=== PATIENT | female | born 1950 | race Caucasian/White ===

== ENCOUNTER 2017-02-13 14:33 | Emergency (ER) | payer MEDICARE, OTHER ==
--- NOTE | ~2017-02-13 | CT71 ---
[facility] A Service of [facility] & [facility] RADIOLOGY TEXT RESULTS PATIENT: ROSENDO ROGEL LOCATION: [facility] : 50 UNIT #: [id number] AGE: [address]: Giuseppe Moreno MD SEX: F ORDER DR: [id number] [facility] [address] [place], [place] [address] [id number] E MR#: [id number] Acc #: [id number] NAME: ROSENDO ROGEL. : 1950 SEX: F STUDY DATE/TIME: 02/13/2017 14:55 UNIT: [facility] ROOM: STUDY DESCRIPTION: CT Head Wo Contrast Attending Physician: Giuseppe Moreno M.D. Ordering Physician: Giuseppe Moreno M.D. Primary Care Physician: No Primary Care Physician MEDICAL IMAGING REPORT This report is preliminary unless electronic signature is present EXAM CT head, 02/13/2017. HISTORY Fall from wheelchair; laceration to back of head today. Neck pain. TECHNIQUE CT head performed skull base through vertex without intravenous contrast. This CT exam was performed with one or more of the following radiation dose reduction techniques: automatic exposure control, adjustment of mA and/or kV according to patient size, and iterative reconstruction. COMPARISON 03/30/2012 FINDINGS Brain stem unremarkable. Cerebellum and cerebral hemispheres show overall preservation of hanson matter-white matter differentiation. No intracranial hemorrhage. There is no evidence of acute cortical ischemia. Prominent area of encephalomalacic change in the left frontal and frontoparietal junction regions, consistent with remote vascular insult. More pronounced than in 2011, but clearly chronic in appearance. There are periventricular and deep white matter tract hypodensities bilaterally, likely reflecting sequelae of chronic microvascular ischemia. The midline structures are nondisplaced. No acute-appearing basal ganglia abnormality. The above described chronic encephalomalacic change does involve a portion of the left putamen, consistent with middle cerebral artery distribution chronic ischemic change. The ventricles, cisterns, and sulci show mild generalized enlargement with sigmoid diverticula ex vacuo change in the left cerebral hemisphere due to the encephalomalacia. No intra- or extraaxial mass effect. There is no acute-appearing bony abnormality. Configuration of the bilateral nasal bones suggests old bilateral nasal bone fractures. No STS. [facility] A Service of [facility] & [facility] RADIOLOGY TEXT RESULTS PATIENT: ROSENDO ROGEL LOCATION: [facility] : 50 UNIT #: [id number] AGE: [address]: Giuseppe Moreno MD SEX: F ORDER DR: change in appearance from prior study. There is soft tissue swelling, posterior left paracentral parietal scalp, likely reflecting the patient's acute trauma. No subcutaneous air or radiodense foreign body. Mucous retention cyst in the right maxillary sinus. Some mucosal thickening in the ethmoid air cells. IMPRESSION 1. No acute-appearing abnormality is seen in the brain. If the patient has ongoing neurologic symptoms, consider follow-up imaging. 2. Chronic changes include the following: Encephalomalacic change in portions of the left frontal lobe, frontoparietal junction region, and basal ganglia, felt secondary to remote vascular insult in left middle cerebral artery distribution. Mild to moderate generalized atrophy. Periventricular and deep white matter tract probable sequelae of chronic small vessel ischemia. 3. No fracture. 4. Soft tissue swelling, left paracentral posterior parietal scalp. Likely reflecting the patient's stated trauma. No subcutaneous air or radiodense foreign body. 5. Old bilateral nasal bone fractures. 6. Mucosal thickening, ethmoid air cells. Mucous retention cyst, right maxillary sinus. Dictated by... Kenneth Glez M.D. THIS IS AN ELECTRONICALLY VERIFIED REPORT Kenneth Glez M.D. at 02/14/2017 1:54 PM СЕРГЕЙ/mckenzie TD: 02/13/2017 18:34 JOB #: [id number] MEDICAL IMAGING REPORT Page 1 of 1 COPY
--- NOTE | ~2017-02-13 | CT52 ---
[facility] A Service of [facility] RADIOLOGY TEXT RESULTS PATIENT: ROSENDO ROGEL LOCATION: [facility] : 50 UNIT #: [id number] AGE: [address]: Giuseppe Moreno MD SEX: F ORDER DR: [id number] [facility] [address] [place], [place] [address] [id number] E MR#: [id number] Acc #: [id number] NAME: ROSENDO ROGEL : 1950 SEX: F STUDY DATE/TIME: 02/13/2017 14:55 UNIT: [facility] ROOM: STUDY DESCRIPTION: CT Cervical Spine Wo Cont Attending Physician: Giuseppe Moreno M.D. Ordering Physician: Giuseppe Moreno M.D. Primary Care Physician: No Primary Care Physician MEDICAL IMAGING REPORT This report is preliminary unless electronic signature is present EXAM Cervical spine CT. HISTORY Laceration to the back of the head after falling from a wheelchair today. Patient complains of neck pain. TECHNIQUE Axial imaging was obtained from the skull base to the upper thoracic spine and evaluated at bone and soft tissue windows with multiplanar reformats. This CT exam was performed with one or more of the following radiation dose reduction techniques: automatic exposure control, adjustment of mA and/or kV according to patient size, and iterative reconstruction. FINDINGS Alignment is satisfactory. There are mild degenerative changes at all cervical discs and facets. There is no evidence of fracture or interlocked facet. No destructive bone lesions are seen. No prevertebral soft tissue swelling is noted. IMPRESSION Mild degenerative disc and facet disease throughout the cervical spine. No fracture is seen. Dictated by... Luis Enrique De M.D. THIS IS AN ELECTRONICALLY VERIFIED REPORT Luis Enrique De M.D. at 02/17/2017 10:12 AM RLF/tmw [facility] A Service of [facility] & [facility] RADIOLOGY TEXT RESULTS PATIENT: ROSENDO ROGEL LOCATION: [facility] : 50 UNIT #: [id number] AGE: [address]: Giuseppe Moreno MD SEX: F ORDER DR: TD: 02/13/2017 17:02 JOB #: [id number] MEDICAL IMAGING REPORT Page 1 of 1 COPY
--- NOTE | ~2017-02-13 | CR170 ---
[facility] A Service of [facility] & [facility] RADIOLOGY TEXT RESULTS PATIENT: ROSENDO ROGEL LOCATION: [facility] : 50 UNIT #: [id number] AGE: [address]: Giuseppe Moreno MD SEX: F ORDER DR: [id number] [facility] [address] [place], [place] [address] [id number] E MR#: [id number] Acc #: [id number] NAME: ROSENDO ROGEL : 1950 SEX: F STUDY DATE/TIME: 02/13/2017 14:20 UNIT: [facility] ROOM: STUDY DESCRIPTION: CR Knee 2 Views Rt Attending Physician: Giuseppe Moreno M.D. Ordering Physician: Giuseppe Moreno M.D. Primary Care Physician: No Primary Care Physician MEDICAL IMAGING REPORT This report is preliminary unless electronic signature is present EXAM 4 views right knee. INDICATION Frontal knee pain after a fall today trying to get in her wheelchair. FINDINGS No definite acute fracture or subluxation of the right knee is identified. Please note exam is significantly degraded by patient positioning as the patient is unable to straighten her knee which limits the AP view. She does appear to be osteopenic. No aggressive osseous abnormalities are seen and there is no suprapatellar effusion. IMPRESSION No obvious fracture identified. Exam is degraded by patient positioning. Dictated by... Rachel Barajas M.D. THIS IS AN ELECTRONICALLY VERIFIED REPORT Rachel Barajas M.D. at 02/13/2017 4:53 PM AFF/tmw TD: 02/13/2017 16:10 JOB #: [id number] MEDICAL IMAGING REPORT Page 1 of 1 COPY
[2017-02-13 14:29] LABS: BASOPHIL% 0.4 % (0-2.5); EOSINOPHIL# 0.2 X10e3 (0-0.7); EOSINOPHIL% 1.9 % (0.0-7.0); HEMATOCRIT 35.7 % (35.0-45.0); HEMOGLOBIN 11.4 gm/dL (12.0-16.0); LYMPHOCYTE# 3.3 X10e3 (1.0-3.5); LYMPHOCYTE% 32.8 % (17.0-45.0); MEAN CORPUSCULAR HEMOGLOBIN 26.4 PG (28-34); MEAN CORPUSCULAR HGB CONC 31.8 g/dL (30-36); MEAN PLATELET VOLUME 8.2 FL (6.5-11.5); MONOCYTE# 0.8 X10e3 (0-1.0); MONOCYTE% 8.1 % (3.0-12.0); NEUTROPHIL# 5.7 X10e3 (1.5-7.1); NEUTROPHIL% 56.8 % (40-75); PLATELET COUNT 419 X10e3 (140-420); RED CELL DISTRIBUTION WIDTH 17.4 % (11.0-15.5); WHITE BLOOD COUNT 9.9 X10e3 (4.0-10.5)
[2017-02-13 14:37] LABS: DIFF IND NO
[2017-02-13 14:45] LABS: INR 1.3
[2017-02-13 14:55] LABS: BUN/CREATININE RATIO 14.28; CALCIUM SERUM 8.8 mg/dL (8.4-10.2); CREATININE SERUM 0.7 mg/dL (0.6-1.4); GLOM FILT RATE Estimated 90.3 mL/min (>60); POTASSIUM 4.2 mmol/L (3.5-5.1)
[2017-07-28] MEDS ORDERED: PROBIOTIC250 MG PO (09:21)
[2017-07-28] MEDS ORDERED: LEVOXYL0.137 MG PO (09:22)
[2017-07-28] MEDS ORDERED: GLUCOPHAGE500 MG PO (09:22)
[2017-07-28] MEDS ORDERED: NEURONTIN600 MG PO (09:24)
[2017-07-28] MEDS ORDERED: CLOPIDOGREL75 MG PO (09:25)
== END 2017-02-13 17:43 | disposition home or self-care (01) ==
LOC: CED 14:33
PROVIDERS: Emergency Medicine
DX: S01.01XA Laceration without foreign body of scalp, initial encounter (principal); I50.9 Heart failure, unspecified; F03.90 Unspecified dementia, unspecified severity, without behavioral disturbance, psychotic disturbance, mood disturbance, and anxiety; N18.9 Chronic kidney disease, unspecified; W05.0XXA Fall from non-moving wheelchair, initial encounter; Y92.129 Unspecified place in nursing home as the place of occurrence of the external cause
CPT/HCPCS: 12001; 36415; 70450; 72125; 73560; 80048; 85025; 85610; 86850; 86900; 86901; 99285; J1885

== ENCOUNTER 2017-07-09 19:31 | Inpatient (IN) | payer MEDICARE, OTHER ==
[~2017-07-09] VITALS: Ht 157.5 cm; Wt 47.3 kg
--- NOTE | ~2017-07-09 | CT4 ---
[facility] A Service of [facility] & [facility] RADIOLOGY TEXT RESULTS PATIENT: ROSENDO ROGEL [address]ATION: [address] : 50 UNIT #: [id number] AGE: [address]: Paxton Gómez MD SEX: F ORDER DR: [id number] [facility] [address] [place], [place] [address] [id number] I MR#: [id number] Acc #: [id number] NAME: ROSENDO ROGEL : 1950 SEX: F STUDY DATE/TIME: 07/11/2017 3:42 UNIT: [id number] ROOM: [facility] STUDY DESCRIPTION: CT Abd and Pelv Wo Cont Attending Physician: Paxton Gómez M.D. Ordering Physician: Paxton Gómez M.D. Primary Care Physician: Paxton Gómez M.D. MEDICAL IMAGING REPORT This report is preliminary unless electronic signature is present EXAM CT abdomen and pelvis without contrast HISTORY Fever and vomiting and abdomen pain today. FINDINGS CT abdomen and pelvis was performed without contrast. This CT exam was performed with one or more of the following radiation dose reduction techniques: automatic control, adjustment of mA and/or kV according to patient size, and iterative reconstruction. CT ABDOMEN: There is moderate atelectasis and mild associated bronchiectasis in the posterior lung bases bilaterally. Cholecystectomy. The liver, spleen, right kidney, and adrenal glands are unremarkable. Pancreatic parenchymal atrophy. 1.5 cm nonobstructing stone in the left renal pelvis. No ureteral dilatation. No bowel dilatation. Normal caliber abdominal aorta. No ascites. CT PELVIS: Probable small stone or collection of stones in the right posterior margin of the urinary bladder. Lazar catheter in the bladder and small amount of air in the bladder, likely secondary to catheterization. Hysterectomy. No free fluid. No inflammatory stranding in the pelvis. Right common femoral vein catheter terminates in the right common iliac vein. IMPRESSION 1. No acute findings in the abdomen or pelvis. 2. 1.5 cm nonobstructing stone in the left renal pelvis. Probable small stones in the right posterior margin of the urinary bladder. 3. No bowel obstruction. No free fluid or inflammatory changes in the abdomen or pelvis. 4. Moderate atelectasis and mild bronchiectasis in the posterior lung [facility]. [facility] A Service of [facility] & [facility] RADIOLOGY TEXT RESULTS PATIENT: ROSENDO ROGEL [address]ATION: [address] : 50 UNIT #: [id number] AGE: [address]: Paxton Gómez MD SEX: F ORDER DR: bases bilaterally. Dictated by... Dariusz Lugo M.D. THIS IS AN ELECTRONICALLY VERIFIED REPORT Dariusz Lugo M.D. at 07/12/2017 6:32 AM DFL/gerardor TD: 07/12/2017 05:39 JOB #: [id number] MEDICAL IMAGING REPORT Page 1 of 1 COPY
--- NOTE | ~2017-07-09 | EKG ---
PATIENT: ROSENDO ROGEL UNIT #: [id number] Ventricular Rate: 118 BPM Atrial Rate: 118 BPM P-R Interval: 162 ms QRS Duration: 88 ms Q-T Interval: 332 ms QTC Calculation(Bezet): 465 ms P [place]: 36 degrees Calculated R [place]: 63 degrees Calculated T [place]: 31 degrees Diagnosis Line: Sinus tachycardia Diagnosis Line: ST and T wave abnormality, consider inferior Diagnosis Line: ischemia Diagnosis Line: ST and T wave abnormality, consider anterolateral Diagnosis Line: ischemia Diagnosis Line: Abnormal ECG Diagnosis Line: No previous ECGs available Diagnosis Line: Confirmed by ALIE MARAVILLA MD ([id number]) on 07/10/2017 Diagnosis Line: 5:11:11 PM INTERPRETING MD: TAIWO SCOTT
--- NOTE | ~2017-07-09 | CR72 ---
[facility] A Service of [facility] & [facility] RADIOLOGY TEXT RESULTS PATIENT: ROSENDO ROGEL LOCATION: [place] [address] : 50 UNIT #: [id number] AGE: [address]: Paxton Gómez MD SEX: F ORDER DR: [id number] [facility] [address] [place], [place] [address] [id number] I MR#: [id number] Acc #: [id number] NAME: ROSENDO ROGEL. : 1950 SEX: F STUDY DATE/TIME: 07/11/2017 5:58 UNIT: [facility] ROOM: [facility] STUDY DESCRIPTION: CR Chest Single View Portable Attending Physician: Paxton Gómez M.D. Ordering Physician: Dewayne Maldonado M.D. Primary Care Physician: Paxton Gómez M.D. MEDICAL IMAGING REPORT This report is preliminary unless electronic signature is present EXAM Portable chest INDICATIONS Fever. Decreased loss of consciousness, suspected aspiration symptoms for 2 days. COMPARISON 07/09/2017. FINDINGS Today's portable view of the chest shows no change from yesterday's study with minimal subsegmental atelectasis in the right mid lung and left base. The heart size is normal. Dictated by... Cong Camara M.D. THIS IS AN ELECTRONICALLY VERIFIED REPORT Cong Camara M.D. at 07/12/2017 9:07 AM MESSI/reba TD: 07/12/2017 08:53 JOB #: [id number] MEDICAL IMAGING REPORT Page 1 of 1 COPY
--- NOTE | ~2017-07-09 | A ---
[facility] Nutrition Therapy DATE: 07/14/17 Patient: ROSENDO Arango JUAN F Physician: VINCE Address: [facility] Room/Bed: [address], Zip: [place] [address] Admit Date: 07/09/17 Date of : [birth year] Height: 5 2 Weight: 105 48 NUTRITIONAL ASSESSMENT: REASON: ICU LOS Admitting dx: 67 y/o female admitted with urosepsis and fever PMH: A-fib, stroke, PE, T2DM, CAD, HTN, HLD, CHF, COPD, vascular dementia, chronic pain, depression, anxiety Anthropometrics: Ht: 62", admission wt: 106 lbs, current wt: 105 lbs, BMI: 19 (normal) Weight range: 102-110 lbs since admission, 150 lbs on 02/13/17?? Labs: glucose 83, POC 80-124 Meds: Therapeutic formula, low SSI, levophed, zofran prn, NSIVF @ 75 ml/hr I/O & Bowel function: BM 07/14 Skin Integrity: No issues, no edema Assessment: Chart reviewed, events noted. See admitting dx and PMH as stated above. RD assessing due to 5-day ICU length of stay. The patient is on 2L nasal cannula, scored 0 points on the malnutrition risk screening. No family at bedside to provide diet/weight history, patient is sleeping at time of visit to room. She is on a regular diet, glucose well controlled at this time. Per nursing she has poor PO intake 25-50% of meals and requires feeding assistance. Nursing trying to encourage increase in PO intake. RD will order Ensure BID and follow hospital course. Of note, the patient's urosepsis is resolved and she is afebrile. She is on a low dose of Levophed due to hypotension, which is the only reason she is still in ICU. See recs below. Dx: Inadequate oral intake r/t decreased appetite, clinical condition AEB PO intake 25-50% of meals, need for ONS. Intervention: Ensure Enlive BID, feeding assistance Monitoring, Evaluation and Goals: 1. PO intake > 50% of meals/supps. 2. Maintain current weight status. Monitor: per protocol, criteria to determine if above goals met Recommendations: [facility] Nutrition Therapy DATE: 07/14/17 Patient: ROSENDO ROGEL Physician: VINCE Address: [facility] Room/Bed: [address], Zip: [place] [address] Admit Date: 07/09/17 Date of : [birth year] Height: 5 2 Weight: 105 48 1. Agree with regular diet. RD ordering Ensure Enlive BID to increase oral kcal/protein intake. 2. Appreciate staff to continue to help feed the patient and encourage PO intake. Will follow Mild-moderate nutrition risk Respectfully, Hope Rincon RD, LD [facility] cc: client file
--- NOTE | ~2017-07-09 | CR72 ---
[facility] A Service of [facility] & [facility] RADIOLOGY TEXT RESULTS PATIENT: ROSENDO ROGEL LOCATION: [address] : 50 UNIT #: [id number] AGE: [address]: Pxaton Gómez MD SEX: F ORDER DR: [id number] [facility] [address] [place], [place] [address] [id number] I MR#: [id number] Acc #: [id number] NAME: ROSENDO ROGEL. : 1950 SEX: F STUDY DATE/TIME: 07/09/2017 19:49 UNIT: [facility] ROOM: [facility] STUDY DESCRIPTION: CR Chest Single View Portable Attending Physician: Paxton Gómez M.D. Ordering Physician: Sachin Peck M.D. Primary Care Physician: Paxton Gómez M.D. MEDICAL IMAGING REPORT This report is preliminary unless electronic signature is present EXAM Portable chest 07/09/2017 HISTORY Fever and aspiration with decreased level of consciousness today. FINDINGS The cardiac and mediastinal structures are stable compared with 04/20/2012. There is elevation of the right hemidiaphragm with atelectasis and/or fibrosis at the right lung base. Infiltrate and/or atelectasis left base. The upper lungs are clear. There are no pleural effusions. IMPRESSION Poor inspiratory result and elevation of the right hemidiaphragm with atelectasis or fibrosis at the right base and infiltrate or atelectasis left base. Dictated by... Shane Strauss M.D. THIS IS AN ELECTRONICALLY VERIFIED REPORT Shane Strauss M.D. at 07/10/2017 4:03 PM SIOBHAN/jannet TD: 07/10/2017 12:11 JOB #: [id number] MEDICAL IMAGING REPORT Page 1 of 1 COPY
--- NOTE | ~2017-07-09 | CO ---
Unit #: [id number] #: [id number] Patient: ROSENDO ROGEL [id number] [address] [place], [place] [address] [id number] I MR#: [id number] NAME: ROSENDO ROGEL. ROOM: [facility] Age: 67 Sex: F Admission Date: 07/09/2017 : 1950 Attending Physician: Paxton Gómez M.D. Primary Care Physician: Paxton Gómez M.D. Requesting Physician: Fito Duarte M.D. Consultation Date: 07/10/2017 CONSULTATION REPORT REASON FOR CONSULTATION Sepsis. HISTORY OF PRESENT ILLNESS This is a 67-year-old white female from a jail who was admitted with hypotension and fever with leukocytosis. She had some urinary difficulties and suprapubic pain. She does not have an indwelling Lazar catheter. She was found to be hypotensive and febrile and was admitted to the ICU and started on ceftriaxone when the urinalysis showed obvious urinary tract infection. Subsequently, blood culture became positive with gram-positive cocci for which vancomycin was initiated, and Infectious Disease was consulted for evaluation. Patient is currently stable. She is awake and follows commands. Her pressor requirement is coming down, and Levophed is being tapered off. Her fever is also improved. She is an extremely poor historian. She does have a right groin central line which was placed in on admission, and the Lazar catheter was new. PAST MEDICAL HISTORY 1. Vascular dementia. 2. Chronic pain syndrome. 3. Congestive heart failure. 4. Anxiety and depression. 5. Hyperlipidemia. 6. Diabetes. 7. Hypertension. 8. Coronary artery disease. 9. Previous stroke. 10. Pulmonary embolism. PAST SURGICAL HISTORY 1. Cholecystectomy. 2. Hysterectomy. 3. Carpal tunnel release. CURRENT MEDICATIONS 1. Vancomycin. 2. Rocephin. 3. IV fluids. 4. Midodrine. 5. Multivitamins. 6. Mirtazapine. 7. Pantoprazole. Unit #: [id number] #: [id number] Patient: ROSENDO ROGEL 8. Trazodone. 9. Sertraline. 10. Warfarin. 11. Norepinephrine infusion. DRUG ALLERGIES Codeine, sulfamethoxazole, trimethoprim. SOCIAL HISTORY She currently lives in a jail. No history of alcohol, drugs, or tobacco abuse. FAMILY HISTORY Negative. HOME MEDICATIONS Noted. REVIEW OF SYSTEMS Patient is unable to provide detailed information. Chart was reviewed and discussions were held with the nursing staff, and pertinent findings are listed in the History of Present Illness. Mostly, she has suprapubic discomfort, hypertension, and mild urinary difficulty. Currently, she is awake and follows commands. She denies any chest pain, abdominal pain, headache, or focal neurologic symptoms. There is no obvious skin breakdown. PHYSICAL EXAMINATION GENERAL: An elderly white female who looks older than her stated age. She is awake and somewhat lethargic but follows commands and does not appear to be in any distress. She is still on low-dose Levophed. VITAL SIGNS: Current temperature is 97.7, T-max was 103.7 on admission, heart rate is 80, respirations 14, and blood pressure 118/53. Her lowest blood pressure was 81/36 on admission. NECK: Supple. She looks pale. No JVD or edema. LUNGS: Clear. CARDIOVASCULAR: Heart sounds are normal. ABDOMEN: Soft. There is minimal suprapubic tenderness. Lazar catheter is in place. Right groin line is in place and looks fine. No rebound or guarding. Bowel sounds are normal. NEUROLOGIC: She is awake and follows commands. She is able to move all four extremities, although there is generalized muscle wasting. DIAGNOSTIC STUDIES LABORATORY: Blood cultures one out of two sets is positive for gram-positive cocci in clusters. ID is pending. Second blood culture was negative. Urine culture with gram-negative rods. Identification is pending. Urinalysis is consistent with urinary tract infection with pyuria, leukocyte esterase, nitrites, and protein. White count today is 13.6. It was 23 on admission. Hemoglobin is 10.1, platelets 223,000, and neutrophils 73%. Sodium 143, potassium 3.9, chloride 108, CO2 of 28, BUN 11, and creatinine 0.6. Lactic acid 2.3 which has improved from 3.7. IMAGING: Chest x-ray shows atelectasis or fibrosis at the right base and atelectasis at the left base. IMPRESSION Septic shock, most likely urinary tract infection. The causative organism Unit #: [id number] #: [id number] Patient: ROSENDO ROGEL appears to be gram-negative trupti. The positive blood culture with gram-positive cocci is most likely a skin contaminant. However, will need to follow the final identification. Patient is overall stable clinically. RECOMMENDATIONS I agree with ceftriaxone and vancomycin. I will give one dose of tobramycin until ID of gram-negative trupti is known. If the blood cultures appear to be coagulase-negative staph, then vancomycin can be discontinued and the rest of the antibiotics adjusted according to final ID and susceptibility of gram-negative trupti in the urine. Thank you, Dr. Duarte, for asking us to see this patient. We will follow along with you. Dictated by... Eleanor Bonilla/naz TD: 07/12/2017 14:33 JOB #: [id number] CONSULTATION REPORT Page 1 of 1 X Andrzej Garcia MD X CONSULTATION REPORT
--- NOTE | ~2017-07-09 | DS ---
Unit #: [id number] #: [id number] Patient: ROSENDO ROGEL [id number] [address] [place], [place] [address] [id number] MR#: [id number] NAME: ROSENDO ROGEL. ROOM: 321 Age: 67 Sex: F Admission Date: 07/09/2017 : 1950 Discharge Date: 07/17/2017 Attending Physician: Paxton Gómez M.D. Primary Care Physician: Paxton Gómez M.D. DISCHARGE SUMMARY DISCHARGE DIAGNOSES 1. Bacteremia. 2. Urosepsis. 3. Chronic systolic heart failure. 4. History of pulmonary embolism. 5. History of coronary artery disease. 6. Hypertension. 7. Chronic pain. 8. Diabetes. 9. Anemia of chronic disease. CONSULTANTS ON THIS HOSPITAL STAY 1. Dr. Maldonado of pulmonary. 2. Dr. Garcia, infectious disease. LABS AND DIAGNOSTICS AND PROCEDURES ON THIS HOSPITAL STAY 1. Chest x-ray shows atelectasis or fibrosis in the right base and infiltrate or atelectasis in the left base. 2. CT abdomen and pelvis without contrast showed no acute findings in the abdomen and pelvis. 1.5 cm nonobstructing stone in the left renal pelvis. Probably small stone in the right posterior margin of the urinary bladder. No bowel obstruction. No free air. Moderate atelectasis and mild bronchiectasis in posterior lung bases bilaterally. 3. Chest x-ray on July 11, no change from previous study, stable. 4. Blood culture from July 0911/17 showed a Staphylococcus species which was coagulase negative and felt probable skin contamination. 5. Urine positive for E. coli which is sensitive to ceftriaxone. HISTORY OF PRESENT HOSPITAL STAY AND ACTIVE PROBLEMS Please refer to H and P done by me for initial presentation on this female. ACTIVE PROBLEMS AND DIAGNOSES Bacteremia with the urosepsis. Patient was treated in ICU with the supportive care, IV fluids and resuscitation along with the pressors and IV antibiotics. Cultures as above. Status post evaluation per ID. ID switched her to p.o. Omnicef for 10 more days. Stable to be discharged, afebrile, white count of 5.5. Chronic systolic heart failure. Currently again stable hemodynamics. She has got chronic hypotension. She is on midodrine. Discharge date BP 91/47. Unit #: [id number] #: [id number] Patient: ROSENDO ROGEL History of PE. Continue anticoagulation with the Coumadin. INR is 1.7. [facility] the [facility]. History of coronary artery disease. Continue home medications. Hypertension, now again with the chronic hypotension, stable. History of chronic pain, continue Roxicodone, script is in the chart. Diabetes, stable. Anemia of chronic disease, stable at the discharge date H and H 10.2 and 31. DISCHARGE MEDICATIONS 1. Proventil inhaler q.6 h. p.r.n. for shortness of air. 2. Lotrisone cream topically b.i.d. 3. Tylenol p.r.n. 4. Warfarin 6 mg daily. 5. Remeron 7.5 mg at bedtime. 6. Zoloft 50 mg daily. 7. Trazodone 100 mg at bedtime. 8. Zofran p.r.n. 9. Breo Ellipta inhaler daily. 10. Omnicef 300 mg b.i.d. 10 days. 11. Sliding scale insulin. 12. Midodrine 10 mg t.i.d. 13. Multivitamin daily. 14. Melatonin 1 mg at bedtime. 15. Roxicodone 5 mg t.i.d. 16. Protonix 40 mg daily. 17. Klor-Con 10 mEq daily. DISPOSITION Going back to a prison. FOLLOWUP Follow up with Dr. Paxton Gómez at the prison. Dictated by... Fito Duarte M.D. OC/cf TD: 07/17/2017 20:48 JOB #: [id number] Unit #: [id number] #: [id number] Patient: ROSENDO ROGEL DISCHARGE SUMMARY Page 1 of 1 X Fito Duarte MD DISCHARGE SUMMARY
--- NOTE | ~2017-07-09 | CO ---
Unit #: [id number] #: [id number] Patient: ROSENDO ROGEL [id number] [address] [place], [place] [address] [id number] I MR#: [id number] NAME: ROSENDO ROGEL. ROOM: [facility] Age: 67 Sex: F Admission Date: 07/09/2017 : 1950 Attending Physician: Paxton Gómez M.D. Primary Care Physician: Paxton Gómez M.D. CONSULTATION REPORT HISTORY OF PRESENT ILLNESS Ms. Rogel is a 67-year-old white female, resident of [facility]. She says that she has been there about two weeks. Apparently she was noted to have a fever there. She was transported to the emergency room. Apparently at some point she became hypotensive and has been admitted to the ICU. We are asked to see. According to the emergency room note, her blood pressure on admission was 114/55, pulse was 122, temperature was 103.1 and room air saturation was 94%. Her lab work was significant for creatinine of 0.9, glucose 115, magnesium 1.5, AST 119, ALT 50, alkaline phosphatase 97. Lactic acid was initially 3.7 and fell to 2.3. PT/INR was 1.8. Initial white blood cell count was 4.1. This morning it is 23.8. Hematocrit was 37.2 and this morning it is 34.1. Platelet count was normal. Urinalysis revealed 3+ leukocyte esterase, 50-100 white cells, 4+ bacteria. Blood cultures are currently pending. Urine culture is growing gram negative trupti. She has been placed on Levophed and is currently being weaned. She has received IV fluids through the emergency room. It appears in the emergency room she received 2 liters of normal saline, some Zofran, Tylenol, Rocephin and was started on Levophed drip. PAST MEDICAL HISTORY Gained from electronic records. 1. She has a history of coronary artery disease. 2. Hypertension. 3. Type 2 diabetes mellitus. 4. Vascular dementia. 5. Chronic obstructive pulmonary disease. 6. Chronic pain. 7. Congestive heart failure. 8. Recurrent urinary tract infections. 9. Gastroesophageal reflux disease. 10. 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 11. Major depressive disorder. 12. Thyroid problems. 13. Hyperlipidemia. SOCIAL HISTORY Apparently a resident at [facility]. Has smoked cigarettes. Has not been smoking in the senior care. Denies alcohol or illicit drugs. Does have chronic pain. Last notation in the chart is full code. FAMILY HISTORY Negative for lung disease. Unit #: [id number] #: [id number] Patient: ROSENDO ROGEL ALLERGIES Bactrim and codeine. CURRENT MEDICATIONS 1. ProAmatine. 2. Protonix. 3. Trazodone. 4. Zoloft. 5. Potassium chloride. 6. Coumadin. 7. Ventolin. 8. Zofran. 9. Tylenol. 10. Betamethasone. 11. Clotrimazole. 12. Multivitamins. 13. OxyContin. 14. Breo. 15. Melatonin. 16. Remeron. REVIEW OF SYSTEMS Difficult to obtain due to somnolence. PHYSICAL EXAMINATION VITALS: blood pressure currently listed at 150/56, pulse 64, respiratory rate 14, afebrile. HEENT: Normocephalic, atraumatic. Pupils equal, round and reactive. Sclerae nonicteric. Nasal passages patent. Posterior pharynx edentulous. NECK: Supple. Trachea midline. LUNGS: Relatively clear. Diminished breath sounds. HEART: Regular rate and rhythm. Could not appreciate murmur, rub or gallop. ABDOMEN: Nontender. Bowel sounds present. No hepatosplenomegaly. EXTREMITIES: Without clubbing, cyanosis or edema. NEUROLOGIC: Awake. Responds. Knows person and place. Moves extremities. DIAGNOSTIC STUDIES IMAGING: Chest x-ray somewhat poor inspiration. Mildly elevated right hemidiaphragm. Some atelectasis or scarring in the right mid lung field. LABORATORY: As noted. ASSESSMENT 1. Gram negative trupti sepsis with urinary tract infection. 2. Chronic obstructive pulmonary disease. 3. History of chronic systolic congestive heart failure. 4. Type 2 diabetes mellitus. 5. History of hypertension. 6. Chronic pain syndrome. 7. History of atrioseptal defect. 8. Hyperlipidemia. 9. Gastroesophageal reflux disease. PLAN Antibiotics for gram negative urinary tract infection and sepsis, fluid resuscitation, pressors. Continue other medications. Wean pressors as Unit #: [id number] #: [id number] Patient: ROSENDO ROGEL tolerated. O2 to maintain adequate saturations. DVT prophylaxis. Continue home medications. Further recommendations pending this. Dictated by... Eleanor Reese/luma TD: 07/10/2017 12:08 JOB #: [id number] CC: Dewayne Maldonado M.D. CONSULTATION REPORT Page 1 of 1 X Dewayne Maldonado MD X CONSULTATION REPORT
--- NOTE | ~2017-07-09 | HP ---
Unit #: [id number] #: [id number] Patient: GRECIA ROGEL [id number] [address] [address] [id number] MR#: [id number] NAME: GRECIA ROGEL ROOM: [facility] Age: 67 Sex: F Admission Date: 07/09/2017 : 1950 Attending Physician: Paxton Gómez M.D. Primary Care Physician: Paxton Gómez M.D. HISTORY AND PHYSICAL REASON FOR ADMISSION 1. Bacteremia. 2. Urosepsis. 3. Chronic systolic heart failure. 4. History of coronary disease with question able atrial fibrillation on chronic anticoagulation. 5. Hypertension. 6. Diabetes type 2. 7. Chronic pain. 8. Dyslipidemia. 9. Anemia of chronic disease. HISTORY OF PRESENT ILLNESS Ms. Grecia Rogel is a 67-year-old female who was brought from the [facility] secondary to hypotension and questionable sepsis. The patient complains of suprapubic tenderness. She denies any fever or chills. Denies any chest pain, shortness of air, dyspnea, headache, dizziness. She is a very poor historian. She cannot tell me why she is on Coumadin. Her labs were grossly abnormal with white blood cell count of 23,000 this morning and blood culture 1 or 2 growing gram positive cocci. Urine was significant for positive nitrates, 3+ leukocyte esterase and 50-100 WBCs. PAST MEDICAL HISTORY 1. Vascular dementia. 2. Chronic pain. 3. Congestive heart failure. 4. Depression/anxiety. 5. Dyslipidemia. 6. Diabetes type 2. 7. Hypertension. 8. Coronary artery disease. 9. Chronic obstructive pulmonary disease. 10. History of stroke. 11. History of PE. PAST SURGICAL HISTORY 1. Cholecystectomy. 2. Hysterectomy. 3. Carpal tunnel release. SOCIAL HISTORY No current history of tobacco, alcohol or illicit drugs. Unit #: [id number] #: [id number] Patient: GRECIA ROGEL FAMILY HISTORY Unremarkable. ALLERGIES Sulfa, codeine and Bactrim. HOME MEDICATIONS 1. Midodrine. 2. Protonix. 3. Trazodone. 4. Zoloft. 5. Klor-Con. 6. Coumadin. 7. Ventolin. 8. Zoloft. 9. Tylenol. 10. Clotrimazole topically. 11. Multivitamins. 12. OxyContin. 13. Breo Ellipta. 14. Melatonin. 15. Remeron. REVIEW OF SYSTEMS Twelve point review of systems negative except as above in history of present illness. PHYSICAL EXAMINATION GENERAL: The patient is a 67-year-old female in no acute distress. VITALS: Blood pressure 112/70, heart rate 78, respiratory rate 16, temperature 98. HEENT: Head is atraumatic. Pupils equal, round and reactive to light and accommodation. Extraocular muscles intact. Oropharynx clear. NECK: No mass, jugular venous distension or bruits. CHEST: Diminished bilaterally. HEART: S1 and S2. No murmurs. ABDOMEN: Soft, nontender and nondistended. EXTREMITIES: Lower extremities without any cyanosis, clubbing or edema. NEUROLOGIC: The patient is without any focal deficits. DIAGNOSTIC STUDIES IMAGING: Chest x-ray questionable right base infiltrate. LABORATORY: Chemistry, blood glucose 139, potassium 3.4, otherwise unremarkable. PT/INR 19.7 and 1.8. Set of cardiac enzymes negative. Hemoglobin 10.9, hematocrit 34.1. ASSESSMENT/PLAN 1. Bacteremia. 2. Urosepsis. 3. Chronic systolic heart failure. 4. History of coronary artery disease. 5. History of PE on chronic anticoagulation. 6. Hypertension. 7. Diabetes type 2. 8. Vascular dementia. 9. Chronic pain. 10. Dyslipidemia. Unit #: [id number] #: [id number] Patient: GRECIA ROGEL 11. Anemia of chronic disease. 12. GI and DVT prophylaxis with PPI and Coumadin. PLAN Continue ICU care. Continue antibiotics. Will started on Rocephin with vancomycin. Will ask infectious disease for evaluation. Will get CT of the abdomen and pelvis without contrast to rule out renal stone or abdominal abscess. Will replace potassium. Check magnesium. Follow up on the INR. Dictated by Eleanor Zamora TD: 07/11/2017 07:59 JOB #: [id number] HISTORY AND PHYSICAL Page 1 of 1 X Fito Duarte MD X HISTORY AND PHYSICAL
[2017-07-09 19:59] LABS: BASOPHIL% 0.3 % (0-2.5); EOSINOPHIL% 0.7 % (0.0-7.0); HEMATOCRIT 37.2 % (35.0-45.0); HEMOGLOBIN 12.2 gm/dL (12.0-16.0); LYMPHOCYTE# 0.5 X10e3 (1.0-3.5); LYMPHOCYTE% 11.1 % (17.0-45.0); MEAN CELL VOLUME 77.9 FL (83-96); MEAN CORPUSCULAR HEMOGLOBIN 25.5 PG (28-34); MEAN CORPUSCULAR HGB CONC 32.8 g/dL (30-36); MEAN PLATELET VOLUME 7.8 FL (6.5-11.5); MONOCYTE% 0.7 % (3.0-12.0); NEUTROPHIL# 3.6 X10e3 (1.5-7.1); NEUTROPHIL% 87.2 % (40-75); PLATELET COUNT 239 X10e3 (140-420); RED BLOOD COUNT 4.78 X10e (3.90-5.30); RED CELL DISTRIBUTION WIDTH 16.6 % (11.0-15.5); WHITE BLOOD COUNT 4.1 X10e3 (4.0-10.5)
[2017-07-09 20:00] LABS: DIFF IND NO
[2017-07-09 20:11] LABS: INR 1.8; PARTIAL THROMBOPLASTIN TIME 25.9 SECONDS (23.5-31.3); PROTHROMBIN TIME (PATIENT) 19.9 SECONDS (10.0-11.7)
[2017-07-09 20:11] LABS: POC - CKMB <1.0 ng/mL (0.0-7.9); POC - TROPONIN <0.05 ng/mL (<=0.05)
[2017-07-09 20:20] LABS: ALBUMIN SERUM 3.8 g/dL (3.5-5.0); ALKALINE PHOSPHATASE 97 U/L (32-92); ALT (SGPT) 50 U/L (10-40); AMYLASE 13 U/L (0-46); AST (SGOT) 119 U/L (10-42); BILIRUBIN,TOTAL 0.7 mg/dL (0.2-2.0); BLOOD UREA NITROGEN 20 mg/dL (9-23); BUN/CREATININE RATIO 22.22; CALCIUM SERUM 9.4 mg/dL (8.4-10.2); CARBON DIOXIDE 26 mmol/L (22-31); CHLORIDE 103 mmol/L (100-111); CREATININE SERUM 0.9 mg/dL (0.6-1.4); GLOM FILT RATE Estimated 66.2 mL/min (>60); GLUCOSE FASTING 115 mg/dL (70-110); LIPASE 19 U/L (22-51); MAGNESIUM 1.5 mg/dL (1.6-3.0); PHOSPHOROUS 2.6 mg/dL (2.5-4.6); POTASSIUM 3.7 mmol/L (3.5-5.1); PROTEIN TOTAL SERUM 7.2 g/dL (6.0-8.3); SODIUM 140 mmol/L (135-145)
[2017-07-09 20:21] LABS: BILIRUBIN, DIRECT <0.1 mg/dL (0.0-0.2); BILIRUBIN,INDIRECT 0.6 mg/dL (0.0-0.9)
[2017-07-09 20:22] LABS: URINE APPEARANCE CLOUDY; URINE BILIRUBIN NEG (NEG); URINE BLOOD 1+ (NEG); URINE COLOR YELLOW; URINE GLUCOSE NEG (NEG); URINE KETONE NEG (NEG); URINE LEUKOCYTE ESTERASE 3+ (NEG); URINE NITRATE POS (NEG); URINE PROTEIN 2+ (NEG); URINE SPECIFIC GRAVITY 1.009 (1.003-1.035); URINE UROBILINOGEN 0.2 MG/DL (NEG)
[2017-07-09 20:26] LABS: CULTURE INDICATED? YES; URINE BACTERIA AUWI 4+ (NEGATIVE); URINE SQUAMOUS EPITHELIAL CELL NONE SEEN /[HPF]; UWBCS1 AUWI 50-100 (0-5)
[2017-07-09] MEDS ORDERED: PROTONIX PO (21:13)
[2017-07-09] MEDS ORDERED: ZOLOFT PO (21:13)
[2017-07-09] MEDS ORDERED: TRAZODONE HCL100 MG PO (21:13)
[2017-07-09] MEDS ORDERED: PRO-AMATINE5 M1 PO (21:13)
[2017-07-09] MEDS ORDERED: MULTIVITAMINS1 EAC4 PO (21:14)
[2017-07-09] MEDS ORDERED: KCL PO (21:14)
[2017-07-09] MEDS ORDERED: REMERON PO (21:15)
[2017-07-09] MEDS ORDERED: MELATONIN3 MG PO (21:15)
[2017-07-09] MEDS ORDERED: BREO ELLIPTA 11 EACH INH (21:15)
[2017-07-09] MEDS ORDERED: OXYCONTIN10 MG PO (21:15)
[2017-07-09] MEDS ORDERED: COUMADIN PO (21:16)
[2017-07-09] MEDS ORDERED: ALBUTEROL17 GM INH (21:17)
[2017-07-09] MEDS ORDERED: ACETAMINOPHEN PO (21:18)
[2017-07-09] MEDS ORDERED: ZOFRAN PO (21:18)
[2017-07-09] MEDS ORDERED: CLOTRIMAZOLE-BE30 M1 TOP (21:19)
[2017-07-10 00:43] LABS: INR 1.8; PROTHROMBIN TIME (PATIENT) 19.7 SECONDS (10.0-11.7)
[2017-07-10 05:12] LABS: BASOPHIL% 0.2 % (0-2.5); EOSINOPHIL% 0.1 % (0.0-7.0); HEMATOCRIT 34.1 % (35.0-45.0); HEMOGLOBIN 10.9 gm/dL (12.0-16.0); LYMPHOCYTE# 1.7 X10e3 (1.0-3.5); LYMPHOCYTE% 7.2 % (17.0-45.0); MEAN CELL VOLUME 78.4 FL (83-96); MEAN CORPUSCULAR HEMOGLOBIN 25.1 PG (28-34); MEAN PLATELET VOLUME 8.3 FL (6.5-11.5); MONOCYTE# 1.6 X10e3 (0-1.0); MONOCYTE% 6.7 % (3.0-12.0); NEUTROPHIL# 20.4 X10e3 (1.5-7.1); NEUTROPHIL% 85.8 % (40-75); PLATELET COUNT 266 X10e3 (140-420); RED BLOOD COUNT 4.35 X10e (3.90-5.30); RED CELL DISTRIBUTION WIDTH 16.5 % (11.0-15.5)
[2017-07-10 05:23] LABS: DIFF IND YES; WHITE BLOOD COUNT 23.8 X10e3 (4.0-10.5)
[2017-07-10 05:59] LABS: PLATELET ESTIMATE NORMAL (NORMAL)
[2017-07-10 06:00] LABS: ANISOCYTOSIS SL
[2017-07-10 06:01] LABS: BUN/CREATININE RATIO 24.28; CALCIUM SERUM 8.6 mg/dL (8.4-10.2); CREATININE SERUM 0.7 mg/dL (0.6-1.4); GLOM FILT RATE Estimated 89.7 mL/min (>60); POTASSIUM 3.4 mmol/L (3.5-5.1)
[2017-07-11 06:19] LABS: BASOPHIL% 0.3 % (0-2.5); EOSINOPHIL# 0.1 X10e3 (0-0.7); EOSINOPHIL% 0.9 % (0.0-7.0); HEMATOCRIT 30.8 % (35.0-45.0); HEMOGLOBIN 10.1 gm/dL (12.0-16.0); LYMPHOCYTE# 2.6 X10e3 (1.0-3.5); LYMPHOCYTE% 19.3 % (17.0-45.0); MEAN CORPUSCULAR HEMOGLOBIN 25.5 PG (28-34); MEAN CORPUSCULAR HGB CONC 32.7 g/dL (30-36); MEAN PLATELET VOLUME 8.3 FL (6.5-11.5); MONOCYTE# 0.9 X10e3 (0-1.0); MONOCYTE% 6.4 % (3.0-12.0); NEUTROPHIL# 9.9 X10e3 (1.5-7.1); NEUTROPHIL% 73.1 % (40-75); PLATELET COUNT 222 X10e3 (140-420); RED BLOOD COUNT 3.95 X10e (3.90-5.30); RED CELL DISTRIBUTION WIDTH 16.9 % (11.0-15.5); WHITE BLOOD COUNT 13.6 X10e3 (4.0-10.5)
[2017-07-11 06:20] LABS: INR 1.6; PROTHROMBIN TIME (PATIENT) 17.7 SECONDS (10.0-11.7)
[2017-07-11 07:00] LABS: BUN/CREATININE RATIO 18.33; CREATININE SERUM 0.6 mg/dL (0.6-1.4); GLOM FILT RATE Estimated 94.3 mL/min (>60); POTASSIUM 3.9 mmol/L (3.5-5.1)
[2017-07-11 07:31] LABS: DIFF IND NO
[2017-07-12 05:05] LABS: BASOPHIL% 0.4 % (0-2.5); EOSINOPHIL# 0.4 X10e3 (0-0.7); EOSINOPHIL% 3.8 % (0.0-7.0); HEMATOCRIT 30.2 % (35.0-45.0); LYMPHOCYTE# 2.7 X10e3 (1.0-3.5); LYMPHOCYTE% 28.2 % (17.0-45.0); MEAN CELL VOLUME 78.3 FL (83-96); MEAN CORPUSCULAR HEMOGLOBIN 25.9 PG (28-34); MEAN CORPUSCULAR HGB CONC 33.1 g/dL (30-36); MEAN PLATELET VOLUME 7.9 FL (6.5-11.5); MONOCYTE# 0.7 X10e3 (0-1.0); MONOCYTE% 7.3 % (3.0-12.0); NEUTROPHIL# 5.7 X10e3 (1.5-7.1); NEUTROPHIL% 60.3 % (40-75); PLATELET COUNT 230 X10e3 (140-420); RED BLOOD COUNT 3.86 X10e (3.90-5.30); RED CELL DISTRIBUTION WIDTH 17.3 % (11.0-15.5); WHITE BLOOD COUNT 9.5 X10e3 (4.0-10.5)
[2017-07-12 05:13] LABS: DIFF IND NO
[2017-07-12 05:33] LABS: CALCIUM SERUM 8.8 mg/dL (8.4-10.2); CREATININE SERUM 0.5 mg/dL (0.6-1.4); GLOM FILT RATE Estimated 100.2 mL/min (>60); POTASSIUM 4.6 mmol/L (3.5-5.1)
[2017-07-12 05:38] LABS: INR 2.5
[2017-07-12 06:19] LABS: PROTHROMBIN TIME (PATIENT) 26.9 SECONDS (10.0-11.7)
[2017-07-13 05:36] LABS: BASOPHIL# 0.1 X10e3 (0-0.3); BASOPHIL% 0.7 % (0-2.5); EOSINOPHIL# 0.5 X10e3 (0-0.7); EOSINOPHIL% 6.1 % (0.0-7.0); HEMATOCRIT 27.7 % (35.0-45.0); HEMOGLOBIN 9.2 gm/dL (12.0-16.0); LYMPHOCYTE# 2.6 X10e3 (1.0-3.5); LYMPHOCYTE% 35.1 % (17.0-45.0); MEAN CELL VOLUME 78.2 FL (83-96); MEAN CORPUSCULAR HGB CONC 33.3 g/dL (30-36); MEAN PLATELET VOLUME 7.5 FL (6.5-11.5); MONOCYTE# 0.6 X10e3 (0-1.0); MONOCYTE% 8.2 % (3.0-12.0); NEUTROPHIL# 3.7 X10e3 (1.5-7.1); NEUTROPHIL% 49.9 % (40-75); PLATELET COUNT 247 X10e3 (140-420); RED BLOOD COUNT 3.55 X10e (3.90-5.30); RED CELL DISTRIBUTION WIDTH 17.1 % (11.0-15.5); WHITE BLOOD COUNT 7.5 X10e3 (4.0-10.5)
[2017-07-13 05:41] LABS: DIFF IND NO
[2017-07-13 05:53] LABS: PROTHROMBIN TIME (PATIENT) 32.5 SECONDS (10.0-11.7)
[2017-07-13 06:10] LABS: CALCIUM SERUM 8.8 mg/dL (8.4-10.2); CREATININE SERUM 0.5 mg/dL (0.6-1.4); GLOM FILT RATE Estimated 100.2 mL/min (>60); POTASSIUM 4.3 mmol/L (3.5-5.1)
[2017-07-14 05:26] LABS: BASOPHIL% 0.7 % (0-2.5); EOSINOPHIL# 0.4 X10e3 (0-0.7); EOSINOPHIL% 6.4 % (0.0-7.0); HEMATOCRIT 28.6 % (35.0-45.0); HEMOGLOBIN 9.6 gm/dL (12.0-16.0); LYMPHOCYTE# 2.3 X10e3 (1.0-3.5); LYMPHOCYTE% 41.2 % (17.0-45.0); MEAN CELL VOLUME 78.3 FL (83-96); MEAN CORPUSCULAR HEMOGLOBIN 26.3 PG (28-34); MEAN CORPUSCULAR HGB CONC 33.6 g/dL (30-36); MEAN PLATELET VOLUME 7.6 FL (6.5-11.5); MONOCYTE# 0.5 X10e3 (0-1.0); MONOCYTE% 8.8 % (3.0-12.0); NEUTROPHIL# 2.4 X10e3 (1.5-7.1); NEUTROPHIL% 42.9 % (40-75); PLATELET COUNT 252 X10e3 (140-420); RED BLOOD COUNT 3.66 X10e (3.90-5.30); RED CELL DISTRIBUTION WIDTH 17.4 % (11.0-15.5); WHITE BLOOD COUNT 5.6 X10e3 (4.0-10.5)
[2017-07-14 05:28] LABS: DIFF IND NO
[2017-07-14 05:42] LABS: INR 2.4; PROTHROMBIN TIME (PATIENT) 26.1 SECONDS (10.0-11.7)
[2017-07-14 06:09] LABS: CALCIUM SERUM 9.1 mg/dL (8.4-10.2); CREATININE SERUM 0.4 mg/dL (0.6-1.4); GLOM FILT RATE Estimated 107.8 mL/min (>60); MAGNESIUM 1.9 mg/dL (1.6-3.0); POTASSIUM 4.6 mmol/L (3.5-5.1)
[2017-07-15 05:29] LABS: BASOPHIL% 0.5 % (0-2.5); EOSINOPHIL# 0.3 X10e3 (0-0.7); EOSINOPHIL% 5.2 % (0.0-7.0); HEMATOCRIT 27.8 % (35.0-45.0); HEMOGLOBIN 9.2 gm/dL (12.0-16.0); LYMPHOCYTE# 2.8 X10e3 (1.0-3.5); LYMPHOCYTE% 46.1 % (17.0-45.0); MEAN CORPUSCULAR HEMOGLOBIN 26.1 PG (28-34); MEAN CORPUSCULAR HGB CONC 33.1 g/dL (30-36); MEAN PLATELET VOLUME 7.7 FL (6.5-11.5); MONOCYTE# 0.5 X10e3 (0-1.0); MONOCYTE% 8.3 % (3.0-12.0); NEUTROPHIL# 2.5 X10e3 (1.5-7.1); NEUTROPHIL% 39.9 % (40-75); PLATELET COUNT 250 X10e3 (140-420); RED BLOOD COUNT 3.52 X10e (3.90-5.30); RED CELL DISTRIBUTION WIDTH 17.6 % (11.0-15.5); WHITE BLOOD COUNT 6.2 X10e3 (4.0-10.5)
[2017-07-15 05:45] LABS: DIFF IND NO
[2017-07-15 06:23] LABS: CALCIUM SERUM 8.9 mg/dL (8.4-10.2); CREATININE SERUM 0.5 mg/dL (0.6-1.4); GLOM FILT RATE Estimated 100.2 mL/min (>60); POTASSIUM 4.7 mmol/L (3.5-5.1)
[2017-07-16 04:47] LABS: INR 1.6; PROTHROMBIN TIME (PATIENT) 17.7 SECONDS (10.0-11.7)
[2017-07-16 05:51] LABS: BUN/CREATININE RATIO 27.5; CALCIUM SERUM 9.2 mg/dL (8.4-10.2); CREATININE SERUM 0.4 mg/dL (0.6-1.4); GLOM FILT RATE Estimated 107.8 mL/min (>60); MAGNESIUM 1.9 mg/dL (1.6-3.0); POTASSIUM 4.6 mmol/L (3.5-5.1)
[2017-07-17 08:42] LABS: HEMOGLOBIN 10.2 gm/dL (12.0-16.0); MEAN CORPUSCULAR HEMOGLOBIN 26.1 PG (28-34); MEAN PLATELET VOLUME 7.6 FL (6.5-11.5); RED BLOOD COUNT 3.92 X10e (3.90-5.30); RED CELL DISTRIBUTION WIDTH 17.6 % (11.0-15.5); WHITE BLOOD COUNT 5.5 X10e3 (4.0-10.5)
[2017-07-17 08:58] LABS: INR 1.7; PROTHROMBIN TIME (PATIENT) 18.2 SECONDS (10.0-11.7)
[2017-07-17 09:07] LABS: CALCIUM SERUM 9.1 mg/dL (8.4-10.2); CREATININE SERUM 0.5 mg/dL (0.6-1.4); GLOM FILT RATE Estimated 100.2 mL/min (>60); MAGNESIUM 2.2 mg/dL (1.6-3.0); POTASSIUM 4.5 mmol/L (3.5-5.1)
[2017-07-28] MEDS ORDERED: PROBIOTIC250 MG PO (09:21)
[2017-07-28] MEDS ORDERED: GLUCOPHAGE500 MG PO (09:22)
[2017-07-28] MEDS ORDERED: LEVOXYL0.137 MG PO (09:22)
[2017-07-28] MEDS ORDERED: NEURONTIN600 MG PO (09:24)
[2017-07-28] MEDS ORDERED: CLOPIDOGREL75 MG PO (09:25)
== END 2017-07-18 02:18 | DRG 871 ==
LOC: CED 19:31 → CEDOF 21:30 → CED 22:37 → CEDOF 22:37 → CICCU3 23:24 → CEDOF 23:24 → C3A PCU 07-15 20:35
PROVIDERS: Emergency Medicine; Hospitalist; Internal Medicine
DX: A41.9 Sepsis, unspecified organism (principal); R65.21 Severe sepsis with septic shock; J96.10 Chronic respiratory failure, unspecified whether with hypoxia or hypercapnia; N39.0 Urinary tract infection, site not specified; I50.22 Chronic systolic (congestive) heart failure; I13.0 Hypertensive heart and chronic kidney disease with heart failure and stage 1 through stage 4 chronic kidney disease, or unspecified chronic kidney disease; J44.9 Chronic obstructive pulmonary disease, unspecified; D63.8 Anemia in other chronic diseases classified elsewhere; G89.4 Chronic pain syndrome; I25.10 Atherosclerotic heart disease of native coronary artery without angina pectoris; F32.9 Major depressive disorder, single episode, unspecified; E78.5 Hyperlipidemia, unspecified; Z79.4 Long term (current) use of insulin; Z86.73 Personal history of transient ischemic attack (TIA), and cerebral infarction without residual deficits; Z86.711 Personal history of pulmonary embolism; Z79.01 Long term (current) use of anticoagulants; N20.0 Calculus of kidney; F01.50 Vascular dementia, unspecified severity, without behavioral disturbance, psychotic disturbance, mood disturbance, and anxiety; N18.9 Chronic kidney disease, unspecified; E11.22 Type 2 diabetes mellitus with diabetic chronic kidney disease; Z87.440 Personal history of urinary (tract) infections; Z88.6 Allergy status to analgesic agent; Z88.1 Allergy status to other antibiotic agents; B96.20 Unspecified Escherichia coli [E. coli] as the cause of diseases classified elsewhere; Z90.49 Acquired absence of other specified parts of digestive tract; Z90.710 Acquired absence of both cervix and uterus
CPT/HCPCS: 36415; 51702; 71010; 74176; 80048; 80076; 80202; 81003; 82150; 82553; 82947; 83605; 83690; 83735; 84100; 84484; 85025; 85027; 85610; 85730; 87040; 87086; 87088; 87186; 93005; 94640; 94664; 94760; 94761; 99291; J0696; J1815; J1885; J2405; J3260; J3370; J3475